=== PATIENT | female | born 1990 | race African-American/Black ===

== ENCOUNTER 2018-12-01 12:33 | Emergency (ER) | payer BC, MEDICAID ==
[~2018-12-01] VITALS: Ht 170.2 cm; Wt 126.9 kg
[2018-12-01] MEDS ORDERED: ACETAMINOPHEN 325MG TABLET PO STA (13:26)
[2018-12-01] MEDS ORDERED: SODIUM CHLORIDE 0.9% 1,000 ML IV ONE (13:26)
[2018-12-01 13:53] LABS: BASOPHILS % 0.4 % (0.0-2.0); EOSINOPHILS % 0.8 % (0.0-5.0); HEMATOCRIT. 37.4 % (36.0-48.0); HEMOGLOBIN. 12.4 g/dL (12.0-16.0); LYMPHOCYTES % 25.7 % (20.0-50.0); MEAN CORPUSCULAR HEMOGLOBIN 28.1 pg (28.0-32.0); MEAN CORPUSCULAR VOLUME 84.7 fL (81.0-99.0); MEAN PLATELET VOLUME 8.5 fl (7.4-10.4); MONOCYTES % 6.3 % (2.0-8.0); NEUTROPHILS % 66.8 % (40.0-76.0); PLATELET 238 x1000/uL (130-400); RED BLOOD CELL COUNT 4.41 mill/uL (4.2-5.4)
[2018-12-01 14:00] LABS: CHLORIDE 108 mEq/L (98-107)
[2018-12-01 14:24] LABS: B-HCG QUANTITATIVE 5389 mIU/mL (<3)
[2018-12-01 17:21] VITALS: BP 144/66
== END 2018-12-01 17:23 | disposition home or self-care (01) ==
LOC: ER 12:33
DX: O9A.212 Injury, poisoning and certain other consequences of external causes complicating pregnancy, second trimester (principal); O99.512 Diseases of the respiratory system complicating pregnancy, second trimester; Z3A.18 18 weeks gestation of pregnancy; Z90.49 Acquired absence of other specified parts of digestive tract; Z98.890 Other specified postprocedural states; Z91.040 Latex allergy status; Z91.018 Allergy to other foods; Z88.5 Allergy status to narcotic agent
CPT/HCPCS: 36415; 76805; 80053; 84702; 85025; 86850; 86900; 86901; 99284; J7030

== ENCOUNTER 2018-12-27 20:38 | Observation (INO) | payer MEDICAID ==
[~2018-12-27] VITALS: Ht 170.2 cm; Wt 126.6 kg
[2018-12-27] MEDS ORDERED: ACETAMINOPHEN 500MG TABLET PO NR (22:15)
[2018-12-27 22:23] LABS: CLARITY URINE CLOUDY (CLEAR); COLOR URINE YELLOW (YELLOW); KETONES URINE TRACE (NEGATIVE); LEUKOCYTE ESTERASE URINE NEGATIVE (NEGATIVE); NITRITE URINE NEGATIVE (NEGATIVE); OCCULT BLOOD URINE NEGATIVE (NEGATIVE); PROTEIN URINE NEGATIVE (NEGATIVE); SPECIFIC GRAVITY URINE 1.028 (1.005-1.030)
[2018-12-28] MEDS ORDERED: LACTATED RINGERS 1,000 ML IV SCH (00:30)
[2018-12-28] MEDS ORDERED: CEFAZOLIN 2,000 MG in DEXT 5% WATER 100 ML IV SCH (01:00)
== END 2018-12-28 01:55 | disposition home or self-care (01) ==
LOC: 8EST NSY 20:38 → OB TRIAGE 21:55
PROVIDERS: ADMIT Obstetrics & Gynecology; ATTEND Obstetrics & Gynecology
DX: O99.89 Other specified diseases and conditions complicating pregnancy, childbirth and the puerperium (principal); M54.5 Low back pain; O26.892 Other specified pregnancy related conditions, second trimester; R10.30 Lower abdominal pain, unspecified; Z3A.23 23 weeks gestation of pregnancy
CPT/HCPCS: 81003; 96365; 99281; G0378; J0690; J7060; 96360; 96361; J7120

== ENCOUNTER 2018-12-30 03:33 | Observation (INO) | payer MEDICAID ==
[~2018-12-30] VITALS: Ht 170.2 cm; Wt 126.6 kg
[2018-12-30] MEDS ORDERED: LACTATED RINGERS 1,000 ML IV SCH (04:00)
[2018-12-30] MEDS ORDERED: TERBUTALINE SULFATE 1MG/ML VIAL SUBCUT PRN (04:30)
[2018-12-30 05:36] LABS: CLARITY URINE CLEAR (CLEAR); COLOR URINE YELLOW (YELLOW); KETONES URINE TRACE (NEGATIVE); LEUKOCYTE ESTERASE URINE NEGATIVE (NEGATIVE); NITRITE URINE NEGATIVE (NEGATIVE); OCCULT BLOOD URINE NEGATIVE (NEGATIVE); PH URINE 6.5 (4.5-8.0); PROTEIN URINE NEGATIVE (NEGATIVE); SPECIFIC GRAVITY URINE 1.022 (1.005-1.030)
[2018-12-30 05:36] LABS: BASOPHILS % 0.4 % (0.0-2.0); EOSINOPHILS % 1.1 % (0.0-5.0); HEMATOCRIT. 33.5 % (36.0-48.0); HEMOGLOBIN. 11.4 g/dL (12.0-16.0); LYMPHOCYTES % 25.2 % (20.0-50.0); MEAN CORPUSCULAR HEMOGLOBIN 28.7 pg (28.0-32.0); MEAN CORPUSCULAR VOLUME 84.6 fL (81.0-99.0); MEAN PLATELET VOLUME 8.8 fl (7.4-10.4); MONOCYTES % 5.8 % (2.0-8.0); NEUTROPHILS % 67.5 % (40.0-76.0); PLATELET 272 x1000/uL (130-400); RED BLOOD CELL COUNT 3.96 mill/uL (4.2-5.4)
[2018-12-30 05:41] LABS: CHLORIDE 109 mEq/L (98-107)
[2018-12-30 05:46] LABS: *AMPHETAMINES SCREEN URINE NEGATIVE (NEGATIVE); *BARBITURATES SCREEN URINE NEGATIVE (NEGATIVE); *BENZODIAZEPINES SCREEN URINE NEGATIVE (NEGATIVE); *COCAINE SCREEN URINE NEGATIVE (NEGATIVE); CANNABINOID URINE SCREEN NEGATIVE (NEGATIVE); METHADONE URINE SCREEN NEGATIVE (NEGATIVE)
[2018-12-30 05:48] LABS: OPIATES URINE SCREEN NEGATIVE (NEGATIVE); PHENCYCLIDINE URINE SCREEN NEGATIVE (NEGATIVE)
[2018-12-30 05:59] LABS: PARTIAL THROMBOPLASTIN TIME 28.9 sec (23.4-31.0)
== END 2018-12-30 07:05 | disposition home or self-care (01) ==
LOC: 8 EST LDRP 03:33
PROVIDERS: ADMIT Obstetrics & Gynecology; ATTEND Obstetrics & Gynecology
DX: O26.892 Other specified pregnancy related conditions, second trimester (principal); R10.9 Unspecified abdominal pain; O99.89 Other specified diseases and conditions complicating pregnancy, childbirth and the puerperium; M54.9 Dorsalgia, unspecified; Z3A.23 23 weeks gestation of pregnancy
CPT/HCPCS: 36415; 76805; 80053; 80305; 81003; 82731; 85025; 85610; 85730; 86592; 86703; 87340; 96372; G0378; J3105

== ENCOUNTER 2019-01-17 20:20 | Observation (INO) | payer MEDICAID ==
[2019-01-17] MEDS ORDERED: PNV1TABL76 MT ×2 (23:04→23:05)
== END 2019-01-17 23:15 | disposition home or self-care (01) ==
LOC: 8 EST LDRP 20:20
PROVIDERS: ADMIT Obstetrics & Gynecology; ATTEND Obstetrics & Gynecology
DX: O42.912 Preterm premature rupture of membranes, unspecified as to length of time between rupture and onset of labor, second trimester (principal); O62.9 Abnormality of forces of labor, unspecified; O26.892 Other specified pregnancy related conditions, second trimester; N89.8 Other specified noninflammatory disorders of vagina; Z3A.26 26 weeks gestation of pregnancy
CPT/HCPCS: 76805; 76818; 99281; G0378

== ENCOUNTER 2019-02-18 12:37 | Observation (INO) | payer MEDICAID ==
[~2019-02-18] VITALS: Ht 170.2 cm; Wt 121.6 kg
[~2019-02-18 12:37] MED LIST: PNV1TABL76 MT
[2019-02-18 14:07] LABS: CLARITY URINE TURBID (CLEAR); COLOR URINE YELLOW (YELLOW); KETONES URINE TRACE (NEGATIVE); LEUKOCYTE ESTERASE URINE TRACE (NEGATIVE); NITRITE URINE NEGATIVE (NEGATIVE); OCCULT BLOOD URINE NEGATIVE (NEGATIVE); PH URINE 6.5 (4.5-8.0); PROTEIN URINE TRACE (NEGATIVE); SPECIFIC GRAVITY URINE 1.024 (1.005-1.030)
[2019-02-18] MEDS ORDERED: LACTATED RINGERS 1,000 ML IV SCH (14:45)
[2019-02-18] MEDS ORDERED: CEFAZOLIN 2,000 MG in DEXT 5% WATER 100 ML IV SCH (14:45)
== END 2019-02-18 16:05 | disposition home or self-care (01) ==
LOC: 8 EST LDRP 12:37
PROVIDERS: ADMIT Obstetrics & Gynecology; ATTEND Obstetrics & Gynecology
DX: O62.9 Abnormality of forces of labor, unspecified (principal); Z3A.00 Weeks of gestation of pregnancy not specified
CPT/HCPCS: 81003; 96365; 99281; G0378; J0690; J7060; 96360

== ENCOUNTER 2019-02-25 21:59 | Observation (INO) | payer MEDICAID ==
[~2019-02-25] VITALS: Ht 170.2 cm; Wt 140.6 kg
[2019-02-25] MEDS ORDERED: ASPI-1393 MT (22:54)
== END 2019-02-25 23:10 | disposition home or self-care (01) ==
LOC: 8 EST LDRP 21:59
PROVIDERS: ADMIT Obstetrics & Gynecology; ATTEND Obstetrics & Gynecology
DX: O88.113 Amniotic fluid embolism in pregnancy, third trimester (principal); Z3A.31 31 weeks gestation of pregnancy
CPT/HCPCS: 99281; G0378

== ENCOUNTER 2019-03-11 07:41 | Observation (INO) | payer MEDICAID ==
[~2019-03-11] VITALS: Ht 170.2 cm; Wt 121.1 kg
[~2019-03-11 07:41] MED LIST changes: +ASPI-1393 MT; -PNV1TABL76 MT
[2019-03-11 08:50] LABS: CLARITY URINE CLOUDY (CLEAR); COLOR URINE YELLOW (YELLOW); KETONES URINE NEGATIVE (NEGATIVE); LEUKOCYTE ESTERASE URINE NEGATIVE (NEGATIVE); NITRITE URINE NEGATIVE (NEGATIVE); OCCULT BLOOD URINE NEGATIVE (NEGATIVE); PH URINE 7.5 (4.5-8.0); PROTEIN URINE NEGATIVE (NEGATIVE); SPECIFIC GRAVITY URINE 1.018 (1.005-1.030)
== END 2019-03-11 10:00 | disposition home or self-care (01) ==
LOC: 8 EST LDRP 07:41
PROVIDERS: ADMIT Obstetrics & Gynecology; ATTEND Obstetrics & Gynecology
DX: O26.899 Other specified pregnancy related conditions, unspecified trimester (principal); R10.9 Unspecified abdominal pain; Z3A.00 Weeks of gestation of pregnancy not specified
CPT/HCPCS: 81003; 99281; G0378

== ENCOUNTER 2019-03-16 17:39 | Observation (INO) | payer MEDICAID ==
[~2019-03-16] VITALS: Ht 170.2 cm; Wt 127.0 kg
[2019-03-16] MEDS ORDERED: PANTOPRAZOLE 40MG DR TABLET PO SCH (18:45)
[2019-03-16] MEDS ORDERED: MAGNESIUM/ALUMINUM HYDROXIDE/SIMETHICONE 30ML UDC PO SCH (18:45)
[2019-03-16 19:03] LABS: CLARITY URINE CLOUDY (CLEAR); COLOR URINE YELLOW (YELLOW); KETONES URINE TRACE (NEGATIVE); LEUKOCYTE ESTERASE URINE TRACE (NEGATIVE); NITRITE URINE NEGATIVE (NEGATIVE); OCCULT BLOOD URINE NEGATIVE (NEGATIVE); PH URINE 6.5 (4.5-8.0); PROTEIN URINE NEGATIVE (NEGATIVE); SPECIFIC GRAVITY URINE 1.025 (1.005-1.030)
[2019-03-16 19:04] LABS: BASOPHILS % 0.4 % (0.0-2.0); EOSINOPHILS % 0.8 % (0.0-5.0); HEMATOCRIT. 31.7 % (36.0-48.0); HEMOGLOBIN. 10.7 g/dL (12.0-16.0); LYMPHOCYTES % 23.6 % (20.0-50.0); MEAN CORPUSCULAR HEMOGLOBIN 28.7 pg (28.0-32.0); MEAN CORPUSCULAR VOLUME 85.2 fL (81.0-99.0); MEAN PLATELET VOLUME 9.2 fl (7.4-10.4); MONOCYTES % 5.3 % (2.0-8.0); NEUTROPHILS % 69.9 % (40.0-76.0); PLATELET 220 x1000/uL (130-400); RED BLOOD CELL COUNT 3.72 mill/uL (4.2-5.4); RED CELL DISTRIBUTION WIDTH 13.3 % (11.6-14.6)
[2019-03-16 19:09] LABS: CHLORIDE 108 mEq/L (98-107)
[2019-03-16 19:11] LABS: PARTIAL THROMBOPLASTIN TIME 24.2 sec (23.4-31.0)
== END 2019-03-16 20:35 | disposition home or self-care (01) ==
LOC: 8 EST LDRP 17:39
PROVIDERS: ADMIT Obstetrics & Gynecology; ATTEND Obstetrics & Gynecology
DX: O62.9 Abnormality of forces of labor, unspecified (principal); Z3A.34 34 weeks gestation of pregnancy
CPT/HCPCS: 36415; 76805; 76818; 80053; 81003; 84550; 85025; 85384; 85610; 85730; 87077; 87086; 99281; G0378

== ENCOUNTER 2019-03-20 16:04 | Observation (INO) | payer MEDICAID ==
[~2019-03-20] VITALS: Ht 170.2 cm; Wt 127.0 kg
[2019-03-20] MEDS ORDERED: CEFAZOLIN 2,000 MG in DEXT 5% WATER 100 ML IV SCH (17:00)
[2019-03-20] MEDS ORDERED: LACTATED RINGERS 1,000 ML IV SCH (17:00)
== END 2019-03-20 18:15 | disposition home or self-care (01) ==
LOC: 8 EST LDRP 16:04
PROVIDERS: ADMIT Obstetrics & Gynecology; ATTEND Obstetrics & Gynecology
DX: O26.893 Other specified pregnancy related conditions, third trimester (principal); R10.9 Unspecified abdominal pain; Z3A.34 34 weeks gestation of pregnancy
CPT/HCPCS: 96365; 99281; G0378; J0690; J7060; 96360

== ENCOUNTER 2019-03-23 20:14 | Observation (INO) | payer MEDICAID ==
[~2019-03-23] VITALS: Ht 170.2 cm; Wt 127.0 kg
== END 2019-03-23 21:40 | disposition home or self-care (01) ==
LOC: 8 EST LDRP 20:14
PROVIDERS: ADMIT Obstetrics & Gynecology; ATTEND Obstetrics & Gynecology
DX: O26.893 Other specified pregnancy related conditions, third trimester (principal); R10.2 Pelvic and perineal pain; Z3A.35 35 weeks gestation of pregnancy
CPT/HCPCS: 99281; G0378

== ENCOUNTER 2019-04-04 23:42 | Observation (INO) | payer MEDICAID ==
[2019-04-05] MEDS ORDERED: LACTATED RINGERS 1,000 ML IV STA (01:02)
[2019-04-05 01:58] LABS: *BARBITURATES SCREEN URINE NEGATIVE (NEGATIVE)
[2019-04-05 01:59] LABS: *AMPHETAMINES SCREEN URINE NEGATIVE (NEGATIVE); *BENZODIAZEPINES SCREEN URINE NEGATIVE (NEGATIVE); *COCAINE SCREEN URINE NEGATIVE (NEGATIVE)
[2019-04-05 02:00] LABS: METHADONE URINE SCREEN NEGATIVE (NEGATIVE); OPIATES URINE SCREEN NEGATIVE (NEGATIVE)
[2019-04-05 02:01] LABS: CANNABINOID URINE SCREEN NEGATIVE (NEGATIVE); PHENCYCLIDINE URINE SCREEN NEGATIVE (NEGATIVE)
[2019-04-05 02:19] LABS: CLARITY URINE CLOUDY (CLEAR); COLOR URINE DARK YELLOW (YELLOW); KETONES URINE TRACE (NEGATIVE); LEUKOCYTE ESTERASE URINE NEGATIVE (NEGATIVE); NITRITE URINE NEGATIVE (NEGATIVE); OCCULT BLOOD URINE NEGATIVE (NEGATIVE); PH URINE 6.5 (4.5-8.0); PROTEIN URINE NEGATIVE (NEGATIVE); SPECIFIC GRAVITY URINE 1.027 (1.005-1.030)
== END 2019-04-05 03:30 | disposition home or self-care (01) ==
LOC: 8 EST LDRP 23:42
PROVIDERS: ADMIT Obstetrics & Gynecology; ATTEND Obstetrics & Gynecology
DX: O21.2 Late vomiting of pregnancy (principal); O62.9 Abnormality of forces of labor, unspecified; Z3A.37 37 weeks gestation of pregnancy
CPT/HCPCS: 80305; 81003; 99281; G0378

== ENCOUNTER 2019-04-12 09:35 | Observation (INO) | payer MEDICAID ==
[2019-04-12] MEDS ORDERED: PNV1TABL76 MT (11:22)
== END 2019-04-12 11:30 | disposition home or self-care (01) ==
LOC: 8 EST LDRP 09:35
PROVIDERS: ADMIT Obstetrics & Gynecology; ATTEND Obstetrics & Gynecology
DX: O26.853 Spotting complicating pregnancy, third trimester (principal); Z98.891 History of uterine scar from previous surgery; Z90.49 Acquired absence of other specified parts of digestive tract; Z3A.38 38 weeks gestation of pregnancy
CPT/HCPCS: 99281; G0378

== ENCOUNTER 2019-04-15 07:09 | Inpatient (IN) | payer MEDICAID ==
[~2019-04-15] VITALS: Ht 170.2 cm; Wt 128.8 kg
[2019-04-15] MEDS: LACTATED RINGERS 1,000 ML IV SCH ×2 (04:53→08:30)
[~2019-04-15 07:09] MED LIST changes: -ASPI-1393 MT; +PNV1TABL76 MT
[2019-04-15] MEDS ORDERED: METHYLERGONOVINE MALEATE 0.2 MG/ML IM PRN (08:00)
[2019-04-15] MEDS ORDERED: NALOXONE HCL 0.4 MG/ML 1ML VIAL IM PRN (08:00)
[2019-04-15] MEDS ORDERED: CARBOPROST TROMETHAMINE 250 MCG/ML AMPUL IM PRN (08:00)
[2019-04-15] MEDS ORDERED: FENTANYL CITRATE/PF 50MCG/ML 2ML VIAL ONE (08:21)
[2019-04-15] MEDS ORDERED: MORPHINE SULFATE/PF 1MG/ML 10ML AMP ONE (08:21)
[2019-04-15] MEDS ORDERED: SODIUM CHLORIDE 0.9% 10ML VIAL ONE (08:22)
[2019-04-15] MEDS ORDERED: CEFAZOLIN SODIUM 1000MG/VIAL ONE (08:22)
[2019-04-15] MEDS ORDERED: KETOROLAC 60MG/2ML VIAL IM ONE (08:22)
[2019-04-15] MEDS ORDERED: OXYTOCIN 10 UNITS/ML 1ML ONE (08:22)
[2019-04-15] MEDS ORDERED: BUPIVACAINE HCL/DEXTROSE/PF 0.75% 2ML AMP INJ ONE (08:22)
[2019-04-15] MEDS ORDERED: PHENYLEPHRINE HCL 10 MG/ML 1ML (IV VIAL) IV ONE (08:23)
[2019-04-15] MEDS ORDERED: ONDANSETRON HCL 4MG/2ML INJ ONE (08:23)
[2019-04-15] MEDS ORDERED: METOCLOPRAMIDE HCL 10MG/2ML VIAL ONE (08:23)
[2019-04-15 09:04] LABS: CLARITY URINE TURBID (CLEAR); COLOR URINE DARK YELLOW (YELLOW); KETONES URINE TRACE (NEGATIVE); LEUKOCYTE ESTERASE URINE TRACE (NEGATIVE); NITRITE URINE NEGATIVE (NEGATIVE); OCCULT BLOOD URINE NEGATIVE (NEGATIVE); PROTEIN URINE NEGATIVE (NEGATIVE); SPECIFIC GRAVITY URINE 1.023 (1.005-1.030)
[2019-04-15 09:09] LABS: BASOPHILS % 0.3 % (0.0-2.0); EOSINOPHILS % 0.8 % (0.0-5.0); HEMATOCRIT. 32.6 % (36.0-48.0); HEMOGLOBIN. 10.8 g/dL (12.0-16.0); LYMPHOCYTES % 23.5 % (20.0-50.0); MEAN CORPUSCULAR HEMOGLOBIN 28.3 pg (28.0-32.0); MEAN CORPUSCULAR VOLUME 85.5 fL (81.0-99.0); MEAN PLATELET VOLUME 8.9 fl (7.4-10.4); MONOCYTES % 7.4 % (2.0-8.0); PLATELET 254 x1000/uL (130-400); RED BLOOD CELL COUNT 3.82 mill/uL (4.2-5.4); RED CELL DISTRIBUTION WIDTH 13.5 % (11.6-14.6)
[2019-04-15 09:13] LABS: INR 0.9; PROTHROMBIN TIME 9.6 sec (9.6-11.0)
[2019-04-15] MEDS ORDERED: CITRIC ACID/SODIUM CITRATE SOLN 30ML UDC PO ONE (09:15)
[2019-04-15 09:33] LABS: *AMPHETAMINES SCREEN URINE NEGATIVE (NEGATIVE); *BARBITURATES SCREEN URINE NEGATIVE (NEGATIVE); *BENZODIAZEPINES SCREEN URINE NEGATIVE (NEGATIVE); *COCAINE SCREEN URINE NEGATIVE (NEGATIVE); CANNABINOID URINE SCREEN NEGATIVE (NEGATIVE); METHADONE URINE SCREEN NEGATIVE (NEGATIVE); OPIATES URINE SCREEN NEGATIVE (NEGATIVE); PHENCYCLIDINE URINE SCREEN NEGATIVE (NEGATIVE)
[2019-04-15] MEDS ORDERED: EPHEDRINE SULFATE 50MG/ML VIAL ONE (10:00)
[2019-04-15] MEDS ORDERED: MIDAZOLAM HCL 2 MG/2 ML VIAL ONE (10:16)
[2019-04-15] MEDS ORDERED: IBUPROFEN 400MG TABLET PO PRN (10:45)
[2019-04-15] MEDS ORDERED: RHO(D) IMMUNE GLOBULIN 300 MCG/SYR IM PRN (10:45)
[2019-04-15] MEDS ORDERED: BISACODYL 10MG SUPP PR PRN (10:45)
[2019-04-15] MEDS ORDERED: LANOLIN OINT 7GM TUBE TOP PRN (10:45)
[2019-04-15 12:16] LABS: HEPATITIS B SURFACE ANTIGEN NEGATIVE
[2019-04-15] MEDS: DEXT 5%/LR + PITOCIN 20UNITS/L 1,000 ML IV SCH ×2 (12:36→19:14)
[2019-04-15] MEDS ORDERED: KETOROLAC 60MG/2ML VIAL IM PRN (13:15)
[2019-04-15] MEDS ORDERED: KETOROLAC 30MG/ML VIAL IM PRN (13:30)
[2019-04-15 14:00] VITALS: BP 125/53
[2019-04-15 14:30] VITALS: BP 121/58
[2019-04-15] MEDS: ONDANSETRON HCL 4MG/2ML INJ IV PRN ×2 (15:20→22:53)
[2019-04-15 17:55] VITALS: BP 121/55
[2019-04-15 19:15] VITALS: BP 116/69
[2019-04-15] MEDS: DOCUSATE SODIUM 100MG CAPSULE PO SCH (21:00)
[2019-04-15] MEDS: IBUPROFEN 800MG TABLET PO PRN (22:48)
[2019-04-16] VITALS: BP 134/70
[2019-04-16 03:42] VITALS: BP 109/71
[2019-04-16] MEDS: ACETAMINOPHEN WITH CODEINE 300/30MG TABLET PO PRN ×4 (03:42→20:26)
[2019-04-16] MEDS: LACTATED RINGERS 1,000 ML IV SCH (04:56)
[2019-04-16 06:48] LABS: BASOPHILS % 0.2 % (0.0-2.0); EOSINOPHILS % 0.4 % (0.0-5.0); HEMATOCRIT. 27.2 % (36.0-48.0); HEMOGLOBIN. 9.1 g/dL (12.0-16.0); LYMPHOCYTES % 12.2 % (20.0-50.0); MEAN CORPUSCULAR HEMOGLOBIN 28.4 pg (28.0-32.0); MEAN PLATELET VOLUME 8.8 fl (7.4-10.4); MONOCYTES % 7.4 % (2.0-8.0); NEUTROPHILS % 79.8 % (40.0-76.0); PLATELET 199 x1000/uL (130-400); RED CELL DISTRIBUTION WIDTH 13.5 % (11.6-14.6)
[2019-04-16 08:20] VITALS: BP 109/67
[2019-04-16] MEDS: PRENATAL VIT/FE FUMARATE/FA TABLET PO SCH (15:40)
[2019-04-16 16:00] VITALS: BP 110/76
[2019-04-16] MEDS: IBUPROFEN 800MG TABLET PO PRN (17:47)
[2019-04-16 19:31] VITALS: BP 122/68
[2019-04-16] MEDS ORDERED: SIMETHICONE 80MG TABLET CHEW PO NR (19:55)
[2019-04-16] MEDS: DOCUSATE SODIUM 100MG CAPSULE PO SCH (20:27)
[2019-04-16] MEDS: HYDROCODONE/ACETAMINOPHEN 5/325MG TABLET PO PRN (23:00)
[2019-04-17 00:28] VITALS: BP 131/75
[2019-04-17] MEDS: ACETAMINOPHEN WITH CODEINE 300/30MG TABLET PO PRN ×5 (00:32→21:29)
[2019-04-17 04:44] VITALS: BP 119/71
[2019-04-17] MEDS: HYDROCODONE/ACETAMINOPHEN 5/325MG TABLET PO PRN (05:25)
[2019-04-17 08:00] VITALS: BP 131/74
[2019-04-17] MEDS: PRENATAL VIT/FE FUMARATE/FA TABLET PO SCH (09:47)
[2019-04-17] MEDS: SIMETHICONE 80MG TABLET CHEW PO SCH ×3 (09:47→16:59)
[2019-04-17] MEDS: IBUPROFEN 800MG TABLET PO PRN ×2 (13:20→19:50)
[2019-04-17 16:10] VITALS: BP 127/74
[2019-04-17 19:10] VITALS: BP 107/69
[2019-04-17] MEDS: DOCUSATE SODIUM 100MG CAPSULE PO SCH (21:29)
[2019-04-18] MEDS: IBUPROFEN 800MG TABLET PO PRN ×2 (03:59→12:01)
[2019-04-18 04:01] VITALS: BP 133/96
[2019-04-18] MEDS ORDERED: TETANUS, DIPHTHERIA, PERTUSSIS VAC/PF 0.5ML (>7YR OLD) IM ONE (05:00)
[2019-04-18] MEDS: ACETAMINOPHEN WITH CODEINE 300/30MG TABLET PO PRN (07:19)
[2019-04-18 08:00] VITALS: BP 137/75
[2019-04-18] MEDS: SIMETHICONE 80MG TABLET CHEW PO SCH ×2 (08:42)
[2019-04-18] MEDS: PRENATAL VIT/FE FUMARATE/FA TABLET PO SCH (08:43)
== END 2019-04-18 11:15 | disposition home or self-care (01) | DRG 540 ==
LOC: OBSVTOIN 07:09 → 8 EST LDRP 07:09 → 8EST 14:00
PROVIDERS: ADMIT Obstetrics & Gynecology; ATTEND Obstetrics & Gynecology
PROC: 10D00Z1 Extraction of Products of Conception, Low, Open Approach (ICD-10-PCS; principal; 2019-04-15)
DX: O34.211 Maternal care for low transverse scar from previous cesarean delivery (principal); O16.4 Unspecified maternal hypertension, complicating childbirth; O99.214 Obesity complicating childbirth; O99.03 Anemia complicating the puerperium; Z37.0 Single live birth; Z88.6 Allergy status to analgesic agent; Z91.040 Latex allergy status; Z88.8 Allergy status to other drugs, medicaments and biological substances; Z91.018 Allergy to other foods; Z3A.38 38 weeks gestation of pregnancy
CPT/HCPCS: 36415; 80305; 81003; 86592; 86703; 86762; 86850; 86900; 86920; 87340; 88307; 90715; J0690; J1885; J2250; J2274; J2370; J2405; J2590; J2765; J3010; J3490; A4315

== ENCOUNTER 2022-11-02 00:15 | Emergency (ER) | payer MEDICAID ==
[~2022-11-02] VITALS: Ht 172.7 cm; Wt 95.0 kg
[2022-11-02 00:22] VITALS: BP 146/77
== END 2022-11-02 01:02 | disposition left against medical advice (07) ==
LOC: ER 00:32
DX: Z53.21 Procedure and treatment not carried out due to patient leaving prior to being seen by health care provider (principal)
CPT/HCPCS: 99281